=== PATIENT | female | born 2000 | race Caucasian/White ===

== ENCOUNTER 2019-07-20 22:47 | Emergency (ER) | payer OTHER ==
[2019-07-20 22:54] VITALS: BP 135/83; PULSE 74; TEMP 98.7; BMI 21.9
[2019-07-20] MEDS ORDERED: MAG HYDROX/AL HYDROX/SIMETH 30 ML UNIT-DOSE CUP PO ONE (23:16)
--- NOTE | 2019-07-20 23:21 | PDOC ---
Documentation entered by Consuelo Cormier SCRIBE, acting as scribe for Zofia Kidd MD. Zofia Kidd MD: This documentation has been prepared by the patriziaibe, Consuelo Cormier SCRIBE, under my direction and personally reviewed by me in its entirety. I confirm that the documentation accurately reflects all work , treatment, procedures, and medical decision making performed by me. History of Present Illness - General Chief Complaint: Pain, Acute Stated Complaint: HEARTBURN Time Seen by Provider: 07/20/19 22:50 History Source: Patient Exam Limitations: No Limitations - History of Present Illness Initial Comments: 07/20/19 23:20 The patient is a 19-year-old female who presents to the emergency department with epigastric burning since 7:30 pm today. The patient reports she went jogging today around 7:30 pm, since then shes been having epigastric burning radiating up. The patient reports taking a Zantac around 8:00 pm, without relief. The patient reports she was dx with GERD and prescribed Zantac by PCP 2 weeks ago. Denies shortness of breath or chest pain. PAST MEDICAL HISTORY: GERD PAST SURGICAL HISTORY: no significant history FAMILY HISTORY: no pertinent history SOCIAL HISTORY: Pt lives with family and is a student. MEDICATIONS: reviewed ALLERGIES: As per nursing notes General: No fevers or chills, no weakness, no weight loss HEENT: No change in vision. No sore throat,. No ear pain CardioVascular: No chest pain or shortness of breath Respiratory:No cough, or wheezing. Gastrointestinal: +epigastric burning. no nausea, vomiting, diarrhea or constipation, No rectal bleeding Genitourinary: No dysuria, hematuria, or frequency Musculoskeletal: No joint or muscle pain or swelling Neurologic: No headache, vertigo, dizziness or loss of consciousness Psychiatric: nor depression Skin: No rashes or easy bruising Endocrine: no increased thirst or abnormal weight change Allergic: no skin or latex allergy All other systems reviewed and normal GENERAL: The patient is awake, alert, and fully oriented, in no acute distress. HEAD: Normal with no signs of trauma. EYES: Pupils equal, round and reactive to light, extraocular movements intact, sclera anicteric, conjunctiva clear. Abdomen: Soft, nondistended, normal bowel sounds, nontender to palpation diffusely Cardiac: S1-S2 normal, regular rate and rhythm, no murmurs rubs or gallops EXTREMITIES: Normal range of motion, no edema. NEUROLOGICAL: Normal speech, normal gait. PSYCH: Normal mood, normal affect. SKIN: Warm, Dry, normal turgor, no rashes or lesions noted. 07/20/19 23:23 Assessment and plan: This is a 19-year-old female who comes in complaining of heartburn. Patient has had it intermittent times several years. But worse over the last several months which prompted her to see her PMD patient was started on Zantac which she said helps sometimes but doesn't completely alleviate her symptoms and they were worse tonight so she came in for evaluation. Patient had no tenderness or pain at the time of my evaluation I gave her a prescription for omeprazole and referred her to a GI specialist Past History - Past Medical History Allergies/Adverse Reactions: Allergies Allergy/AdvReac Type Severity Reaction Status Date / Time No Known Allergies Allergy Unverified 09/28/14 19:58 Home Medications: Ambulatory Orders Omeprazole/Sodium Bicarbonate [Omeprazole-Bicarb 40-1,100 Cap] 1 each PO DAILY # 30 capsule 07/20/19 Ranitidine HCl [Zantac] 150 mg PO DAILY 07/20/19 COPD: No - Immunization History Immunization Up to Date: Yes - Suicide/Smoking/Psychosocial Hx Smoking History: Current some day smoker Have you smoked in the past 12 months: Yes Information on smoking cessation initiated: Yes Hx Alcohol Use: Yes (OCCAS) Drug/Substance Use Hx: No Substance Use Type: None *Physical Exam - Vital Signs Last Vital Signs Temp Pulse Resp BP Pulse Ox 98.7 F 74 16 135/83 100 07/20/19 22:50 07/20/19 22:50 07/20/19 22:50 07/20/19 22:50 07/20/19 22:50 *DC/Admit/Observation/Transfer Diagnosis at time of Disposition: GERD (gastroesophageal reflux disease) - Discharge Dispostion Disposition: HOME Condition at time of disposition: Stable Decision to Admit order: No - Prescriptions Prescriptions: Omeprazole/Sodium Bicarbonate [Omeprazole-Bicarb 40-1,100 Cap] 1 each PO DAILY # 30 capsule - Referrals Referrals: Gerardo Berrios MD [Staff Physician] - - Patient Instructions - Post Discharge Activity
[2019-07-20] MEDS ORDERED: MAG HYDROX/AL HYDROX/SIMETH 30 ML UNIT-DOSE CUP ONE (23:40)
[2019-07-21] MEDS ORDERED: MAG HYDROX/AL HYDROX/SIMETH 30 ML UNIT-DOSE CUP ONE (03:02)
== END 2019-07-21 00:17 | disposition home or self-care (01) ==
LOC: FER 22:47
DX: K21.9 Gastro-esophageal reflux disease without esophagitis (principal); F17.210 Nicotine dependence, cigarettes, uncomplicated
CPT/HCPCS: 99281-25